=== PATIENT | female | born 1990 | race Caucasian/White ===

== ENCOUNTER 2016-06-18 16:37 | Inpatient (IN) | payer BC ==
[~2016-06-18] VITALS: Ht 172.7 cm; Wt 99.8 kg
[2016-06-18 17:25] LABS: HEMOGLOBIN 11.2 gm/dl (12.3-15.3); RED BLOOD COUNT 3.94 M/UL (4.00-5.10); WHITE BLOOD COUNT 8.3 K/UL (4.5-11.0)
[2016-06-20 03:05] LABS: HEMOGLOBIN 10.3 gm/dl (12.3-15.3)
[2016-06-21] MEDS ORDERED: COLACE 100MG C100 MG PO (10:05)
[2016-06-21] MEDS ORDERED: NORCO 5-325 TA1 EACH PO (10:11)
[2016-06-21] MEDS ORDERED: IBUPROFEN600 MG PO (10:11)
== END 2016-06-21 11:50 | disposition home or self-care (01) | DRG 774 ==
LOC: GENOP 16:37 → OB 06-19 05:52
PROVIDERS: ADMIT Obstetrics & Gynecology
PROC: 10907ZC Drainage of Amniotic Fluid, Therapeutic from Products of Conception, Via Natural or Artificial Opening (ICD-10-PCS; principal; 2016-06-19)
PROC: 10E0XZZ Delivery of Products of Conception, External Approach (ICD-10-PCS; 2016-06-19)
PROC: 0UQMXZZ Repair Vulva, External Approach (ICD-10-PCS; 2016-06-19)
PROC: 0U7C7ZZ Dilation of Cervix, Via Natural or Artificial Opening (ICD-10-PCS; 2016-06-19)
PROC: 0HQ9XZZ Repair Perineum Skin, External Approach (ICD-10-PCS; 2016-06-19)
PROC: 3E0234Z Introduction of Serum, Toxoid and Vaccine into Muscle, Percutaneous Approach (ICD-10-PCS; 2016-06-20)
PROC: 3E0234Z Introduction of Serum, Toxoid and Vaccine into Muscle, Percutaneous Approach (ICD-10-PCS; 2016-06-21)
DX: O48.0 Post-term pregnancy (principal); O72.1 Other immediate postpartum hemorrhage; Z3A.41 41 weeks gestation of pregnancy; O70.0 First degree perineal laceration during delivery; Z37.0 Single live birth; Z23 Encounter for immunization; O69.81X0 Labor and delivery complicated by cord around neck, without compression, not applicable or unspecified
CPT/HCPCS: 36415; 51702; 81001; 82800; 85014; 85018; 85025; 90707; 90715; J2210; J2590; J2795; J3430; J7120